=== PATIENT | male | born 1975 | race Caucasian/White ===

== ENCOUNTER 2021-05-02 20:28 | Emergency (ER) | payer OTHER ==
[~2021-05-02] VITALS: Ht 182.9 cm; Wt 86.2 kg
[~2021-05-02 20:28] MED LIST: ASPI81EC PO
== END 2021-05-02 22:45 | disposition home or self-care (01) ==
LOC: ER 20:28
DX: H57.12 Ocular pain, left eye (principal); Z88.0 Allergy status to penicillin; Z88.5 Allergy status to narcotic agent
CPT/HCPCS: 99283; A9270

== ENCOUNTER → 2023-06-06 | Outpatient (CLI) | payer OTHER | LOC: LAB SHORT 15:05 → LAB 15:05 | DX: B35.1 Tinea unguium (principal) | CPT/HCPCS: 87102 ==

== ENCOUNTER 2023-10-25 12:34 | Day surgery (SDC) | payer OTHER ==
[~2023-10-25] VITALS: Ht 182.9 cm; Wt 79.0 kg
[~2023-10-25 12:34] MED LIST changes: +IBUP400 PO; +MULVITA PO
[2023-10-25 14:32] VITALS: BP 99/65
== END 2023-10-25 14:18 | disposition home or self-care (01) ==
LOC: ORSCSDS 12:34
PROVIDERS: Surgery
PROC: 0DJD8ZZ Inspection of Lower Intestinal Tract, Via Natural or Artificial Opening Endoscopic (ICD-10-PCS; principal; 2023-10-25 13:00)
DX: Z12.11 Encounter for screening for malignant neoplasm of colon (principal); K64.8 Other hemorrhoids
CPT/HCPCS: J2704; J7120